=== PATIENT | male | born 1960 | race Caucasian/White ===

== ENCOUNTER 2016-12-10 22:25 | Inpatient (IN) | payer OTHER ==
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
[2016-12-10] MEDS ORDERED: METHADONE HCL 10 MG TABLET (FOR DETOX USE ONLY) PO ONE ×2 (23:00→23:25)
[2016-12-10 23:07] VITALS: BMI 25.6
[2016-12-10] MEDS ORDERED: diphenhydrAMINE HCL 50 MG CAPSULE PO PRN (23:25)
[2016-12-10] MEDS ORDERED: diazePAM 5 MG TABLET PO PRN (23:25)
[2016-12-10] MEDS ORDERED: NICOTINE POLACRILEX 2 MG GUM BUC PRN (23:25)
[2016-12-10] MEDS ORDERED: guaiFENesin/D-METHORPHAN HB 10 ML UNIT-DOSE CUPS PO PRN (23:25)
[2016-12-10] MEDS ORDERED: hydrOXYzine PAMOATE 25 MG CAPSULE (FP) PO PRN (23:25)
[2016-12-10] MEDS ORDERED: MENTHOL/PHENOL 1 EACH UD MM PRN (23:25)
[2016-12-10] MEDS ORDERED: LOPERAMIDE HCL 2 MG CAPSULE PO PRN (23:25)
[2016-12-10] MEDS ORDERED: MAG HYDROX/AL HYDROX/SIMETH 30 ML UNIT-DOSE CUP PO PRN (23:25)
[2016-12-10] MEDS ORDERED: ACETAMINOPHEN 325 MG TABLET (FP) PO PRN (23:25)
[2016-12-10] MEDS ORDERED: P-EPHED 60MG/TRIPROLIDI 2.5MG TABLET PO PRN (23:25)
[2016-12-10] MEDS ORDERED: diazePAM 5 MG TABLET PO ONE (23:25)
[2016-12-10] MEDS ORDERED: MAGNESIUM CITRATE 300 ML BOTTLE PO PRN (23:25)
[2016-12-10] MEDS ORDERED: MAGNESIUM HYDROX 2400MG/30ML ORAL SUSPENSION 30 ML CUP PO PRN (23:25)
[2016-12-10] MEDS ORDERED: IBUPROFEN 400 MG TABLET (FP) PO PRN (23:25)
[2016-12-10] MEDS ORDERED: CYCLOBENZAPRINE HCL 10 MG TABLET (FP) PO PRN (23:28)
[2016-12-11] MEDS: diazePAM 5 MG TABLET PO SCH ×4 (00:46→21:24)
[2016-12-11 09:40] LABS: MCH 28.7 pg (25.7-33.7); MCHC 32.3 g/dl (32.0-35.9); MEAN CELL VOLUME 88.8 fl (80-96); MEAN PLT VOLUME 7.8 fl (7.5-11.1); PLATELET COUNT 346 K/MM3 (134-434); RDW 14.5 % (11.9-15.9); WHITE BLOOD COUNT 5.3 K/mm3 (4.0-10.0)
[2016-12-11] MEDS ORDERED: GABAPENTIN 300 MG CAPSULE (FP) PO SCH (10:00)
[2016-12-11] MEDS ORDERED: METHADONE HCL 10 MG TABLET (FOR DETOX USE ONLY) PO ONE ×2 (10:00→23:00)
[2016-12-11] MEDS ORDERED: METHADONE HCL 10 MG TABLET (FOR DETOX USE ONLY) PO SCH (10:00)
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
[2016-12-11] MEDS: PRENATAL VITAMINS W/ FOLIC ACID TABLET (FP) PO SCH (10:02)
[2016-12-11] MEDS: cloNIDine HCL 0.1 MG TABLET PO SCH ×2 (10:02→21:25)
[2016-12-11] MEDS: NICOTINE 21 MG/24 HOURS TOPICAL PATCH TD SCH (10:03)
[2016-12-11] MEDS: diazePAM 5 MG TABLET PO PRN ×2 (10:04→19:28)
[2016-12-11 10:06] LABS: ALK PHOS 64 U/L (45-117); ANION GAP 7 (8-16); BILIRUBIN,TOTAL 0.4 mg/dL (0.2-1.0); CALCIUM 8.7 mg/dL (8.5-10.1); CO2 31 mmol/L (21-32); GLUCOSE,RANDOM 110 mg/dL (74-106); SGOT/AST 26 U/L (15-37); SGPT/ALT 33 U/L (12-78); TOT PROT 6.6 g/dl (6.4-8.2)
[2016-12-11] MEDS ORDERED: ONDANSETRON *ODT* 4 MG TABLET SL PRN (10:19)
[2016-12-11 11:47] LABS: HIV 1 & 2 AB NEGATIVE; HIV 1 AGp24 NEGATIVE
[2016-12-11] MEDS: GABAPENTIN 300 MG CAPSULE (FP) PO SCH ×2 (13:11→21:24)
--- NOTE | 2016-12-11 17:16 | PN ---
S CIWA - CIWA Score Nausea/Vomitin Muscle Tremors: 4-Moderate,w/Arms Extend Anxiety: 3 Agitation: 3 Paroxysmal Sweats: 3 Orientation: 0-Oriented Tacttile Disturbances: 2-Mild Itch/Numbness/Burn Auditory Disturbances: 0-None Visual Disturbances: 0-None Headache: 3-Moderate CIWA-Ar Total Score: 21 BHS COWS - Scale Resting Pulse: 1= [place] 81-100 Sweatin= Chills/Flushing Restless Observation: 1= Difficult to Sit Still Pupil Size: 0= Normal to Room Light Bone or Joint Aches: 2= Severe Diffuse Aches Runny Nose/ Eye Tearin= Runny Nose/Eyes GI Upset > 30mins: 2= Nausea/Diarrhea Tremor Observation of Outstretched Hands: 2= Slight Tremor Visible Yawning Observation: 1= 1-2x During Session Anxiety or Irritability: 2=Irritable/Anxious Goose Flesh Skin: 0=Smooth Skin COWS Score: 14 S Progress Note (SOAP) Subjective: Nausea, Stomach Cramping, H/A, Fatigue, Tremors, Sweating, Body Aches. Objective: PT. A & O X 3. NO ACUTE DISTRESS. 12/11/16 17:14 Vital Signs Temperature 97.9 F 12/11/16 13:22 Pulse Rate 78 12/11/16 13:22 Respiratory Rate 18 12/11/16 13:22 Blood Pressure 101/75 12/11/16 13:22 O2 Sat by Pulse Oximetry (%) Laboratory Tests 12/11/16 12/11/16 12/11/16 05:30 05:30 05:30 WBC 5.3 RBC 5.15 Hgb 14.8 Hct 45.8 MCV 88.8 MCH 28.7 MCHC 32.3 RDW 14.5 Plt Count 346 MPV 7.8 Sodium 141 Potassium 4.4 Chloride 103 Carbon Dioxide 31 Anion Gap 7 L BUN 15 Creatinine 1.0 Creat Clearance w eGFR > 60 Random Glucose 110 H Calcium 8.7 Total Bilirubin 0.4 AST 26 ALT 33 Alkaline Phosphatase 64 Total Protein 6.6 Albumin 3.0 L RPR Titer Nonreactive HIV 1&2 Antibody Screen HIV P24 Antigen 12/11/16 05:30 WBC RBC Hgb Hct MCV MCH MCHC RDW Plt Count MPV Sodium Potassium Chloride Carbon Dioxide Anion Gap BUN Creatinine Creat Clearance w eGFR Random Glucose Calcium Total Bilirubin AST ALT Alkaline Phosphatase Total Protein Albumin RPR Titer HIV 1&2 Antibody Screen Negative HIV P24 Antigen Negative LABS NOTED. UA RESULTS PENDING. 12/11/16 17:15 Assessment: 12/11/16 17:15 WITHDRAWAL SYMPTOMS. Plan: CONTINUE DETOX.
[2016-12-11] MEDS: THIAMINE HCL 100 MG TABLET (FP) PO SCH (21:24)
[2016-12-11] MEDS: OLANZapine 10 MG TABLET PO SCH (21:24)
--- NOTE | 2016-12-11 22:16 | EKG ---
Test Reason : Blood Pressure : / mmHG Vent. Rate : 074 BPM Atrial Rate : 074 BPM P-R Int : 142 ms QRS Dur : 092 ms QT Int : 370 ms P-R-T Axes : 036 070 061 degrees QTc Int : 410 ms NORMAL SINUS RHYTHM NORMAL ECG NO PREVIOUS ECGS AVAILABLE Confirmed by CAROLINA CARTER MD ([id number]) on 12/11/2016 10:16:08 PM Referred By: Confirmed By:CAROLINA CARTER MD
[2016-12-11] MEDS: ZOLPIDEM TARTRATE 10 MG TABLET (PARK CARE ONLY) PO PRN (22:17)
[2016-12-12] MEDS: GABAPENTIN 300 MG CAPSULE (FP) PO SCH ×3 (05:50→22:09)
[2016-12-12] MEDS: diazePAM 5 MG TABLET PO PRN ×3 (05:50→18:18)
[2016-12-12] MEDS ORDERED: METHADONE HCL 5 MG TABLET (FOR DETOX USE ONLY) PO SCH (10:00)
[2016-12-12] MEDS ORDERED: METHADONE HCL 10 MG TABLET (FOR DETOX USE ONLY) PO ONE (10:00)
[2016-12-12] MEDS: cloNIDine HCL 0.1 MG TABLET PO SCH ×2 (10:25→22:08)
[2016-12-12] MEDS: NICOTINE 21 MG/24 HOURS TOPICAL PATCH TD SCH (10:26)
[2016-12-12] MEDS: PRENATAL VITAMINS W/ FOLIC ACID TABLET (FP) PO SCH (10:26)
[2016-12-12] MEDS: diazePAM 5 MG TABLET PO SCH ×2 (10:26→22:08)
--- NOTE | 2016-12-12 11:16 | PN ---
S CIWA - CIWA Score Nausea/Vomitin Muscle Tremors: None Anxiety: 5 Agitation: 3 Paroxysmal Sweats: 3 Orientation: 0-Oriented Tacttile Disturbances: 3-Moderate Itch/Numb/Burn Auditory Disturbances: 0-None Visual Disturbances: 0-None Headache: 2-Mild CIWA-Ar Total Score: 21 BHS COWS - Scale Resting Pulse: 1= [place] 81-100 Sweatin= Chills/Flushing Restless Observation: 1= Difficult to Sit Still Pupil Size: 0= Normal to Room Light Bone or Joint Aches: 2= Severe Diffuse Aches Runny Nose/ Eye Tearin= Nasal Congestion GI Upset > 30mins: 3= Vomiting/Diarrhea Tremor Observation of Outstretched Hands: 0= None Yawning Observation: 0= None Anxiety or Irritability: 2=Irritable/Anxious Goose Flesh Skin: 3=Piloerection COWS Score: 14 S Progress Note (SOAP) Subjective: Interrupted sleep, Vomiting, Stomach Cramping, H/A, Body Aches, Sweating. Objective: PT. A & O X 3, OBSERVED AMBULATING ON UNIT. NO ACUTE DISTRESS. 12/12/16 11:14 Vital Signs Temperature 95.5 F L 12/12/16 09:10 Pulse Rate 83 12/12/16 09:10 Respiratory Rate 18 12/12/16 09:10 Blood Pressure 121/86 12/12/16 09:10 O2 Sat by Pulse Oximetry (%) Laboratory Tests 12/11/16 12/11/16 12/11/16 05:30 05:30 05:30 WBC 5.3 RBC 5.15 Hgb 14.8 Hct 45.8 MCV 88.8 MCH 28.7 MCHC 32.3 RDW 14.5 Plt Count 346 MPV 7.8 Sodium 141 Potassium 4.4 Chloride 103 Carbon Dioxide 31 Anion Gap 7 L BUN 15 Creatinine 1.0 Creat Clearance w eGFR > 60 Random Glucose 110 H Calcium 8.7 Total Bilirubin 0.4 AST 26 ALT 33 Alkaline Phosphatase 64 Total Protein 6.6 Albumin 3.0 L RPR Titer Nonreactive HIV 1&2 Antibody Screen HIV P24 Antigen 12/11/16 05:30 WBC RBC Hgb Hct MCV MCH MCHC RDW Plt Count MPV Sodium Potassium Chloride Carbon Dioxide Anion Gap BUN Creatinine Creat Clearance w eGFR Random Glucose Calcium Total Bilirubin AST ALT Alkaline Phosphatase Total Protein Albumin RPR Titer HIV 1&2 Antibody Screen Negative HIV P24 Antigen Negative LABS NOTED. UA RESULTS PENDING. 12/12/16 11:15 Assessment: 12/12/16 11:15 WITHDRAWAL SYMPTOMS. Plan: CONTINUE DETOX.
[2016-12-12 14:04] LABS: URINE APPEARANCE SLCLOUDY; URINE BILIRUBIN NEGATIVE (NEGATIVE); URINE BLOOD NEGATIVE (NEGATIVE); URINE COLOR YELLOW; URINE GLUCOSE (UA) NEGATIVE (NEGATIVE); URINE KETONE NEGATIVE (NEGATIVE); URINE LEUK ESTERASE NEGATIVE (NEGATIVE); URINE NITRITE NEGATIVE (NEGATIVE); URINE PROTEIN NEGATIVE (NEGATIVE); URINE UROBILINOGEN NEGATIVE mg/dL (0.2-1.0)
[2016-12-12 17:39] VITALS: BP 98/57; PULSE 74; TEMP 97.5
[2016-12-12] MEDS: ZOLPIDEM TARTRATE 10 MG TABLET (PARK CARE ONLY) PO PRN (22:08)
[2016-12-12] MEDS: OLANZapine 10 MG TABLET PO SCH (22:09)
[2016-12-12] MEDS: THIAMINE HCL 100 MG TABLET (FP) PO SCH (22:09)
--- NOTE | 2016-12-12 22:58 | DS ---
[facility] Detox Discharge Summary Admission Date: 12/10/16 Discharge Date: 12/12/16 - History Present History: Alcohol Dependence, Opioid Dependence Pertinent Past History: Hepatitis C - Physical Exam Results Vital Signs: Vital Signs Temperature 97.5 F L 12/12/16 17:38 Pulse Rate 74 12/12/16 17:38 Respiratory Rate 18 12/12/16 17:38 Blood Pressure 98/57 12/12/16 17:38 O2 Sat by Pulse Oximetry (%) - Medication Discharge Medications: Ambulatory Orders Clonazepam [Klonopin -] 2 mg PO BID 12/11/16 Gabapentin [Neurontin -] 300 mg PO TID #90 cap 12/11/16 Gabapentin [Neurontin] 300 mg PO TID 12/11/16 Olanzapine [ZyPREXA -] 10 mg PO HS #30 tablet 12/11/16 Olanzapine [Zyprexa] 20 mg PO HS 12/11/16 - Diagnosis (1) Alcohol dependence with uncomplicated withdrawal Current Visit: Yes Status: Chronic (2) Opioid dependence with withdrawal Current Visit: Yes Status: Chronic - AMA Did Patient Leave Against Medical Advice: Yes (Pt. left the floor before [employer] C[employer]ER SERVICE REPRESENTATIVE could assess him on the unit. )
--- NOTE | 2016-12-12 23:02 | PN ---
[facility] Progress Note Note: Pt. was escorted off the floor by security. He left AMA and refused to wait to see the FUTURES TRADER.
[2016-12-13] MEDS ORDERED: METHADONE HCL 5 MG TABLET (FOR DETOX USE ONLY) PO ONE (10:00)
[2016-12-14] MEDS ORDERED: METHADONE HCL 5 MG TABLET (FOR DETOX USE ONLY) PO ONE (10:00)
[2016-12-14] MEDS ORDERED: diazePAM 5 MG TABLET PO SCH (10:00)
[2016-12-14] MEDS ORDERED: METHADONE HCL 10 MG TABLET (FOR DETOX USE ONLY) PO SCH (10:00)
[2016-12-15] MEDS ORDERED: METHADONE HCL 5 MG TABLET (FOR DETOX USE ONLY) PO SCH (06:00)
[2016-12-15] MEDS ORDERED: METHADONE HCL 10 MG TABLET (FOR DETOX USE ONLY) PO ONE (10:00)
[2016-12-16] MEDS ORDERED: METHADONE HCL 5 MG TABLET (FOR DETOX USE ONLY) PO ONE (06:00)
== END 2016-12-12 22:46 | disposition left against medical advice (07) | DRG 770 ==
LOC: YASAS 22:25 → Y3N 23:08
PROVIDERS: ADMIT Internal Medicine Addiction Medicine; ATTEND Internal Medicine Addiction Medicine
PROC: HZ2ZZZZ Detoxification Services for Substance Abuse Treatment (ICD-10-PCS; principal; 2016-12-10)
DX: F11.23 Opioid dependence with withdrawal (principal); F10.230 Alcohol dependence with withdrawal, uncomplicated; F14.20 Cocaine dependence, uncomplicated; F17.210 Nicotine dependence, cigarettes, uncomplicated; F43.10 Post-traumatic stress disorder, unspecified; B18.2 Chronic viral hepatitis C; Z87.898 Personal history of other specified conditions; Z98.890 Other specified postprocedural states; Z91.14 Patient's other noncompliance with medication regimen; Z88.0 Allergy status to penicillin; Z86.69 Personal history of other diseases of the nervous system and sense organs; Z91.5 Personal history of self-harm; Z59.0 Homelessness
CPT/HCPCS: 36415; 80053; 81003; 85027; 86593; 87389; 93005; 93010

== ENCOUNTER 2017-01-16 11:11 | Inpatient (IN) | payer OTHER ==
[2017-01-16 12:23] VITALS: BMI 25.0
--- NOTE | 2017-01-16 13:50 | HP ---
COWS - Scale Resting Pulse: 0= [place] 80 or Below Sweatin=Flushed/Facial Moisture Restless Observation: 1= Difficult to Sit Still Pupil Size: 0= Normal to Room Light Bone or Joint Aches: 2= Severe Diffuse Aches Runny Nose/ Eye Tearin= Runny Nose/Eyes GI Upset > 30mins: 0= None Tremor Observation: 2= Slight Tremor Visible Yawning Observation: 2= >3x During Session Anxiety or Irritability: 2=Irritable/Anxious Goose Flesh Skin: 3=Piloerection COWS Score: 16 CIWA Score - CIWA Score Nausea/Vomitin-Mild Nausea/No Vomiting Muscle Tremors: 4-Moderate,w/Arms Extend Anxiety: 3 Agitation: 4-Moderately Restless Paroxysmal Sweats: 3 Orientation: 0-Oriented Tacttile Disturbances: 0-None Auditory Disturbances: 0-None Visual Disturbances: 0-None Headache: 1-Very Mild CIWA-Ar Total Score: 16 Admission ROS BHS - HPI Chief Complaint: I am here because I want to get better. Allergies/Adverse Reactions: Allergies Allergy/AdvReac Type Severity Reaction Status Date / Time Penicillins Allergy Verified 01/16/17 13:26 History of Present Illness: pt is a 56yr old male with a history of alcohol and heroin dependence seeking detox for treatment. Pt has been given this opportunity for his detox. pt is aware that his last visit with us he was disrespecting the staff cursing and threatening and was not ready for the detox at the time and following unit rules. this visit he is ready and will complete. Exam Limitations: No Limitations - Ebola screening Have you traveled outside of the country in the last 21 days: No Have you had contact with anyone from an Ebola affected area: No Have you been sick,other than usual withdrawal symptoms: No Do you have a fever: No - Review of Systems Constitutional: Chills, Loss of Appetite, Night Sweats, Changes in sleep EENT: reports: Tearing, Nose Congestion Respiratory: reports: No Symptoms reported Cardiac: reports: No Symptoms Reported GI: reports: Constipated, Poor Appetite, Poor Fluid Intake, Indigestion : reports: No Symptoms Reported Musculoskeletal: reports: Back Pain, Joint Pain, Neck Pain Integumentary: reports: Flushing, Sweating Neuro: reports: Headache, Seizure (last seizure 4 days ago d/t alcohol or drug use), Tingling, Tremors Endocrine: reports: Excessive Sweating, Flushing Hematology: reports: No Symptoms Reported Psychiatric: reports: No Sypmtoms Reported, Judgement Intact, Mood/Affect Appropiate, Orientated x3, Agitated, Anxious Other Systems: Reviewed and Negative Patient History - Patient Medical History Hx Anemia: No Hx Asthma: No Hx Chronic Obstructive Pulmonary Disease (COPD): No Hx Cancer: No Hx Cardiac Disorders: No Hx Congestive Heart Failure: No Hx Hypertension: No Hx Hypercholesterolemia: No Hx Pacemaker: No HX Cerebrovascular Accident: No Hx Seizures: Yes (LAST 12/08/16) Hx Dementia: No Hx Diabetes: No Hx Gastrointestinal Disorders: No Hx Liver Disease: No Hx Genitourinary Disorders: No Hx Sexually Transmitted Disorders: No Hx Renal Disease (ESRD): No Hx Thyroid Disease: No Hx Human Immunodeficiency Virus (HIV): No (LAST 04/25 NEGATIVE) Hx Hepatitis C: Yes (received tx but was not successful) Hx Depression: No Hx Suicide Attempt: Yes (HANG HIMSELF) Hx Bipolar Disorder: No Hx Schizophrenia: Yes (NON COMPLIANCE) - Patient Surgical History Past Surgical History: Yes Hx Neurologic Surgery: Yes (SURGERY FOR FX OF C1 AND C2) Hx Orthopedic Surgery: Yes (FX CALCANEUS BOTH IN 1992) - PPD History Previous Implant?: Yes Documented Results: Negative w/o proof PPD to be Administered?: Yes - Reproductive History Patient is a Female of Child Bearing Age (11 -55 yrs old): No - Smoking Cessation Smoking history: Current every day smoker Have you smoked in the past 12 months: Yes Aproximately how many cigarettes per day: 20 Cigars Per Day: 0 Hx Chewing Tobacco Use: No Initiated information on smoking cessation: Yes 'Breaking Loose' booklet given: 01/16/17 - Substance & Tx. History Hx Alcohol Use: Yes Hx Substance Use: Yes Substance Use Type: Alcohol, Cocaine, Heroin Hx Substance Use Treatment: Yes (last detox 12/2016 but did not complete) - Substances Abused Alcohol-beer Route: Oral Frequency: Daily Amount used: 2-3 6 pks. Age of first use: 16 Date of Last Use: 01/15/17 Heroin Route: Injection Frequency: Daily Amount used: 18 bags Age of first use: 16 Date of Last Use: 01/16/17 Cocaine Route: Injection Frequency: 3-6 times per week Amount used: 40 Age of first use: 20 Date of Last Use: 01/13/17 Family Disease History - Family Disease History Family Disease History: Other: Father (ALCOHOL,DSA ) Admission Physical Exam [facility] - Vital Signs Vital Signs: Vital Signs - 24 hr 01/16/17 12:20 Temperature 98.7 F Pulse Rate 74 Respiratory 18 Rate Blood Pressure 127/71 - Physical General Appearance: Yes: Appropriately Dressed, Moderate Distress, Thin, Tremorous, Irritable, Sweating, Anxious HEENTM: Yes: Normocephalic, Normal Voice, Nasal Congestion, Rhinorrhea Respiratory: Yes: Lungs Clear, Normal Breath Sounds, No Respiratory Distress Neck: Yes: No masses,lesions,Nodules Breast: Yes: Within Normal Limits Cardiology: Yes: Regular Rhythm, Regular Rate, S1, S2 Abdominal: Yes: Normal Bowel Sounds, Non Tender, Soft Genitourinary: Yes: Within Normal Limits Back: Yes: Normal Inspection Musculoskeletal: Yes: full range of Motion, Back pain Extremities: Yes: Normal Capillary Refill, Normal Inspection, Tremors Neurological: Yes: Fully Oriented, Alert, Normal Response Integumentary: Yes: Normal Color, Diaphoresis, Track Mcghee Lymphatic: Yes: Within Normal Limits - Diagnostic (1) Alcohol dependence with uncomplicated withdrawal Current Visit: Yes Status: Chronic (2) Hepatitis C Current Visit: Yes Status: Chronic Qualifiers: Viral hepatitis chronicity: chronic Hepatic coma status: without hepatic coma Qualified Code(s): B18.2 - Chronic viral hepatitis C; B18.2 - Chronic viral hepatitis C; B18.2 - Chronic viral hepatitis C; B18.2 - Chronic viral hepatitis C (3) Nicotine dependence Current Visit: Yes Status: Chronic Qualifiers: Nicotine product type: cigarettes Substance use status: uncomplicated Qualified Code(s): F17.210 - Nicotine dependence, cigarettes, uncomplicated; F17.210 - Nicotine dependence, cigarettes, uncomplicated (4) Opioid dependence with withdrawal Current Visit: Yes Status: Chronic Cleared for Admission [facility] - Detox or Rehab [facility] Level of Care: Medically Managed Detox Regimen/Protocol: Methadone/Valium [facility] Breath Alcohol Content Breath Alcohol Content: 0 Urine Drug Screen - Results Drug Screen Negative: No Urine Drug Screen Results: OPI-Opiates, BZO-Benzodiazepines, MTD-Methadone
[2017-01-16] MEDS ORDERED: ACETAMINOPHEN 325 MG TABLET (FP) PO PRN (13:58)
[2017-01-16] MEDS ORDERED: LOPERAMIDE HCL 2 MG CAPSULE PO PRN (13:58)
[2017-01-16] MEDS ORDERED: MAGNESIUM CITRATE 300 ML BOTTLE PO PRN (13:58)
[2017-01-16] MEDS ORDERED: hydrOXYzine PAMOATE 50 MG CAPSULE (FP) PO PRN (13:58)
[2017-01-16] MEDS ORDERED: guaiFENesin/D-METHORPHAN HB 10 ML UNIT-DOSE CUPS PO PRN (13:58)
[2017-01-16] MEDS ORDERED: diphenhydrAMINE HCL 50 MG CAPSULE PO PRN (13:58)
[2017-01-16] MEDS ORDERED: MAGNESIUM HYDROX 2400MG/30ML ORAL SUSPENSION 30 ML CUP PO PRN (13:58)
[2017-01-16] MEDS ORDERED: MENTHOL/PHENOL 1 EACH UD MM PRN (13:58)
[2017-01-16] MEDS ORDERED: P-EPHED 60MG/TRIPROLIDI 2.5MG TABLET PO PRN (13:58)
[2017-01-16] MEDS ORDERED: NICOTINE POLACRILEX 4 MG GUM BUC PRN (13:58)
[2017-01-16] MEDS ORDERED: METHADONE HCL 10 MG TABLET (FOR DETOX USE ONLY) PO ONE ×2 (15:43→23:00)
[2017-01-16] MEDS ORDERED: diazePAM 5 MG TABLET PO ONE (15:43)
[2017-01-16] MEDS: THIAMINE HCL 100 MG TABLET (FP) PO SCH (22:27)
[2017-01-16] MEDS: diazePAM 5 MG TABLET PO SCH (22:28)
[2017-01-16] MEDS: IBUPROFEN 400 MG TABLET (FP) PO PRN (22:29)
[2017-01-16 22:59] LABS: URINE APPEARANCE CLEAR; URINE BILIRUBIN NEGATIVE (NEGATIVE); URINE BLOOD NEGATIVE (NEGATIVE); URINE COLOR YELLOW; URINE GLUCOSE (UA) NEGATIVE (NEGATIVE); URINE KETONE NEGATIVE (NEGATIVE); URINE NITRITE NEGATIVE (NEGATIVE); URINE PROTEIN NEGATIVE (NEGATIVE); URINE UROBILINOGEN NEGATIVE mg/dL (0.2-1.0)
[2017-01-17] MEDS: diazePAM 5 MG TABLET PO SCH ×3 (05:24→22:55)
[2017-01-17 08:36] LABS: HIV 1 & 2 AB NEGATIVE; HIV 1 AGp24 NEGATIVE
[2017-01-17] MEDS: diazePAM 5 MG TABLET PO PRN ×2 (08:59→17:23)
[2017-01-17] MEDS ORDERED: METHADONE HCL 10 MG TABLET (FOR DETOX USE ONLY) PO SCH (10:00)
[2017-01-17] MEDS: PRENATAL VITAMINS W/ FOLIC ACID TABLET (FP) PO SCH (10:19)
[2017-01-17] MEDS: NICOTINE 21 MG/24 HOURS TOPICAL PATCH TD SCH (10:20)
[2017-01-17] MEDS: IBUPROFEN 400 MG TABLET (FP) PO PRN ×3 (10:21→22:57)
[2017-01-17 10:29] LABS: MCH 28.6 pg (25.7-33.7); MCHC 32.6 g/dl (32.0-35.9); MEAN CELL VOLUME 87.5 fl (80-96); PLATELET COUNT 342 K/MM3 (134-434); WHITE BLOOD COUNT 6.7 K/mm3 (4.0-10.0)
[2017-01-17 10:42] LABS: URINE LEUK ESTERASE Negative (NEGATIVE)
[2017-01-17 10:48] LABS: ALBUMIN 2.9 g/dl (3.4-5.0); ALK PHOS 62 U/L (45-117); ANION GAP 6 (8-16); BILIRUBIN,TOTAL 0.5 mg/dL (0.2-1.0); CALCIUM 8.5 mg/dL (8.5-10.1); CO2 28 mmol/L (21-32); CREATININE 0.8 mg/dL (0.7-1.3); GLUCOSE,RANDOM 94 mg/dL (74-106); SGOT/AST 21 U/L (15-37); SGPT/ALT 37 U/L (12-78); TOT PROT 6.5 g/dl (6.4-8.2)
--- NOTE | 2017-01-17 12:08 | PN ---
[facility] CIWA - CIWA Score Nausea/Vomitin Muscle Tremors: 3 Anxiety: 3 Agitation: 3 Paroxysmal Sweats: 1-Minimal Palms Moist Orientation: 0-Oriented Tacttile Disturbances: 1-Very Mild Itch/Numbness Auditory Disturbances: 1-Very Mild Visual Disturbances: 0-None Headache: 2-Mild CIWA-Ar Total Score: 17 [facility] COWS - Scale Resting Pulse: 0= [place] 80 or Below Sweatin= Chills/Flushing Restless Observation: 3= Extraneous Movement Pupil Size: 1= Pupils >than Normal Bone or Joint Aches: 2= Severe Diffuse Aches Runny Nose/ Eye Tearin= Runny Nose/Eyes GI Upset > 30mins: 3= Vomiting/Diarrhea Tremor Observation of Outstretched Hands: 2= Slight Tremor Visible Yawning Observation: 1= 1-2x During Session Anxiety or Irritability: 2=Irritable/Anxious Goose Flesh Skin: 0=Smooth Skin COWS Score: 17 [facility] Progress Note (SOAP) Subjective: alert,irritable,anxious,interrupted sleep,pain i the body and back,tremor Objective: 01/17/17 12:06 Vital Signs Temperature 97.3 F L 01/17/17 10:55 Pulse Rate 70 01/17/17 10:55 Respiratory Rate 18 01/17/17 10:55 Blood Pressure 109/85 01/17/17 10:55 O2 Sat by Pulse Oximetry (%) ekg nsr,normal ecg Laboratory Last Values WBC 6.7 K/mm3 (4.0-10.0) 01/17/17 07:00 RBC 5.50 M/mm3 (4.00-5.60) 01/17/17 07:00 Hgb 15.7 GM/dL (11.7-16.9) 01/17/17 07:00 Hct 48.2 % (35.4-49) 01/17/17 07:00 MCV 87.5 fl (80-96) 01/17/17 07:00 MCH 28.6 pg (25.7-33.7) 01/17/17 07:00 MCHC 32.6 g/dl (32.0-35.9) 01/17/17 07:00 RDW 14.0 % (11.9-15.9) 01/17/17 07:00 Plt Count 342 K/MM3 (134-434) 01/17/17 07:00 MPV 8.0 fl (7.5-11.1) 01/17/17 07:00 Sodium 140 mmol/L (136-145) 01/17/17 07:00 Potassium 4.6 mmol/L (3.5-5.1) 01/17/17 07:00 Chloride 106 mmol/L (98-107) 01/17/17 07:00 Carbon Dioxide 28 mmol/L (21-32) 01/17/17 07:00 Anion Gap 6 (8-16) L 01/17/17 07:00 BUN 12 mg/dL (7-18) 01/17/17 07:00 Creatinine 0.8 mg/dL (0.7-1.3) 01/17/17 07:00 Creat Clearance w eGFR > 60 (>60) 01/17/17 07:00 Random Glucose 94 mg/dL (74-106) 01/17/17 07:00 Calcium 8.5 mg/dL (8.5-10.1) 01/17/17 07:00 Total Bilirubin 0.5 mg/dL (0.2-1.0) D 01/17/17 07:00 AST 21 U/L (15-37) 01/17/17 07:00 ALT 37 U/L (12-78) 01/17/17 07:00 Alkaline Phosphatase 62 U/L (45-117) 01/17/17 07:00 Total Protein 6.5 g/dl (6.4-8.2) 01/17/17 07:00 Albumin 2.9 g/dl (3.4-5.0) L 01/17/17 07:00 Urine Color Yellow 01/16/17 19:00 Urine Appearance Clear 01/16/17 19:00 Urine pH 6.0 (5.0-8.0) 01/16/17 19:00 Ur Specific [place] 1.020 (1.005-1.025) 01/16/17 19:00 Urine Protein Negative (NEGATIVE) 01/16/17 19:00 Urine Glucose (UA) Negative (NEGATIVE) 01/16/17 19:00 Urine Ketones Negative (NEGATIVE) 01/16/17 19:00 Urine Blood Negative (NEGATIVE) 01/16/17 19:00 Urine Nitrite Negative (NEGATIVE) 01/16/17 19:00 Urine Bilirubin Negative (NEGATIVE) 01/16/17 19:00 Urine Urobilinogen Negative mg/dL (0.2-1.0) 01/16/17 19:00 Ur Leukocyte Esterase Negative (NEGATIVE) 01/16/17 19:00 HIV 1&2 Antibody Screen Negative 01/16/17 13:30 HIV P24 Antigen Negative 01/16/17 13:30 Assessment: 01/17/17 12:08 withdrawal symptom Plan: continue detox
[2017-01-17] MEDS ORDERED: cloNIDine HCL 0.1 MG TABLET PO ONE (12:35)
[2017-01-17] MEDS: CYCLOBENZAPRINE HCL 10 MG TABLET (FP) PO PRN ×2 (13:08→22:57)
--- NOTE | 2017-01-17 13:16 | EKG ---
Test Reason : Blood Pressure : / mmHG Vent. Rate : 066 BPM Atrial Rate : 066 BPM P-R Int : 142 ms QRS Dur : 092 ms QT Int : 372 ms P-R-T Axes : 037 072 059 degrees QTc Int : 389 ms NORMAL SINUS RHYTHM NORMAL ECG WHEN COMPARED WITH ECG OF 10-DEC-2016 22:44, NO SIGNIFICANT CHANGE WAS FOUND Confirmed by MARY HARDEN MD ([id number]) on 01/17/2017 1:16:20 PM Referred By: Boyd Morales Confirmed By:MARY HARDEN MD
--- NOTE | 2017-01-17 14:47 | CONSULT ---
[facility] Psychiatric Consult - Data Date of interview: 01/17/17 Admission source: [facility] Identifying data: Patient declines psychiatric evaluation.Staff is made aware.
[2017-01-17] MEDS: THIAMINE HCL 100 MG TABLET (FP) PO SCH (22:55)
[2017-01-17] MEDS: cloNIDine HCL 0.1 MG TABLET PO SCH (22:58)
[2017-01-18] MEDS: diazePAM 5 MG TABLET PO PRN ×3 (07:08→18:35)
[2017-01-18] MEDS: IBUPROFEN 400 MG TABLET (FP) PO PRN ×2 (07:09→14:49)
[2017-01-18] MEDS: PRENATAL VITAMINS W/ FOLIC ACID TABLET (FP) PO SCH (10:22)
[2017-01-18] MEDS: cloNIDine HCL 0.1 MG TABLET PO SCH ×2 (10:22→22:50)
[2017-01-18] MEDS: CYCLOBENZAPRINE HCL 10 MG TABLET (FP) PO PRN ×2 (10:22→18:35)
[2017-01-18] MEDS: diazePAM 5 MG TABLET PO SCH ×2 (10:22→22:49)
[2017-01-18] MEDS: METHADONE HCL 5 MG TABLET (FOR DETOX USE ONLY) PO SCH (10:22)
[2017-01-18] MEDS: NICOTINE 21 MG/24 HOURS TOPICAL PATCH TD SCH (10:23)
--- NOTE | 2017-01-18 11:14 | PN ---
[facility] CIWA - CIWA Score Nausea/Vomitin Muscle Tremors: 3 Anxiety: 3 Agitation: 2 Paroxysmal Sweats: 1-Minimal Palms Moist Orientation: 0-Oriented Tacttile Disturbances: 1-Very Mild Itch/Numbness Auditory Disturbances: 1-Very Mild Visual Disturbances: 0-None Headache: 2-Mild CIWA-Ar Total Score: 16 [facility] COWS - Scale Resting Pulse: 1= [place] 81-100 Sweatin= Chills/Flushing Restless Observation: 3= Extraneous Movement Pupil Size: 1= Pupils >than Normal Bone or Joint Aches: 2= Severe Diffuse Aches Runny Nose/ Eye Tearin= Runny Nose/Eyes GI Upset > 30mins: 2= Nausea/Diarrhea Tremor Observation of Outstretched Hands: 2= Slight Tremor Visible Yawning Observation: 1= 1-2x During Session Anxiety or Irritability: 2=Irritable/Anxious Goose Flesh Skin: 0=Smooth Skin COWS Score: 17 [facility] Progress Note (SOAP) Subjective: alert,irritable,,anxious,interrupted sleep,tremor,pain in the body and back Objective: 01/18/17 11:11 Vital Signs Temperature 98.1 F 01/18/17 11:00 Pulse Rate 85 01/18/17 11:00 Respiratory Rate 20 01/18/17 11:00 Blood Pressure 111/67 01/18/17 11:00 O2 Sat by Pulse Oximetry (%) Assessment: 01/18/17 11:13 01/18/17 11:14 withdrawal symptom Plan: continue detox
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
[2017-01-18] MEDS: ZOLPIDEM TARTRATE 10 MG TABLET (PARK CARE ONLY) PO PRN (22:49)
[2017-01-18] MEDS: OLANZapine 10 MG TABLET PO SCH (22:49)
[2017-01-18] MEDS: THIAMINE HCL 100 MG TABLET (FP) PO SCH (22:49)
[2017-01-19] MEDS: diazePAM 5 MG TABLET PO PRN ×2 (05:39→13:42)
[2017-01-19] MEDS: CYCLOBENZAPRINE HCL 10 MG TABLET (FP) PO PRN ×2 (07:03→22:42)
[2017-01-19] MEDS: IBUPROFEN 400 MG TABLET (FP) PO PRN ×2 (07:04→15:05)
[2017-01-19] MEDS: cloNIDine HCL 0.1 MG TABLET PO SCH ×2 (10:43→22:42)
[2017-01-19] MEDS: diazePAM 5 MG TABLET PO SCH ×2 (10:43→22:42)
[2017-01-19] MEDS: METHADONE HCL 5 MG TABLET (FOR DETOX USE ONLY) PO SCH (10:43)
[2017-01-19] MEDS: PRENATAL VITAMINS W/ FOLIC ACID TABLET (FP) PO SCH (10:43)
[2017-01-19] MEDS: NICOTINE 21 MG/24 HOURS TOPICAL PATCH TD SCH (10:43)
--- NOTE | 2017-01-19 11:25 | PN ---
S Progress Note (SOAP) Subjective: alert,irritable,anxious,interrupted sleep,pain in the back,and neck,history of back surgery staed on neurontin 300 mgs po tid Objective: 01/19/17 11:23 Vital Signs Temperature 96.6 F L 01/19/17 09:31 Pulse Rate 87 01/19/17 09:31 Respiratory Rate 18 01/19/17 09:31 Blood Pressure 103/67 01/19/17 09:31 O2 Sat by Pulse Oximetry (%) Laboratory Last Values WBC 6.7 K/mm3 (4.0-10.0) 01/17/17 07:00 RBC 5.50 M/mm3 (4.00-5.60) 01/17/17 07:00 Hgb 15.7 GM/dL (11.7-16.9) 01/17/17 07:00 Hct 48.2 % (35.4-49) 01/17/17 07:00 MCV 87.5 fl (80-96) 01/17/17 07:00 MCH 28.6 pg (25.7-33.7) 01/17/17 07:00 MCHC 32.6 g/dl (32.0-35.9) 01/17/17 07:00 RDW 14.0 % (11.9-15.9) 01/17/17 07:00 Plt Count 342 K/MM3 (134-434) 01/17/17 07:00 MPV 8.0 fl (7.5-11.1) 01/17/17 07:00 Sodium 140 mmol/L (136-145) 01/17/17 07:00 Potassium 4.6 mmol/L (3.5-5.1) 01/17/17 07:00 Chloride 106 mmol/L (98-107) 01/17/17 07:00 Carbon Dioxide 28 mmol/L (21-32) 01/17/17 07:00 Anion Gap 6 (8-16) L 01/17/17 07:00 BUN 12 mg/dL (7-18) 01/17/17 07:00 Creatinine 0.8 mg/dL (0.7-1.3) 01/17/17 07:00 Creat Clearance w eGFR > 60 (>60) 01/17/17 07:00 Random Glucose 94 mg/dL (74-106) 01/17/17 07:00 Calcium 8.5 mg/dL (8.5-10.1) 01/17/17 07:00 Total Bilirubin 0.5 mg/dL (0.2-1.0) D 01/17/17 07:00 AST 21 U/L (15-37) 01/17/17 07:00 ALT 37 U/L (12-78) 01/17/17 07:00 Alkaline Phosphatase 62 U/L (45-117) 01/17/17 07:00 Total Protein 6.5 g/dl (6.4-8.2) 01/17/17 07:00 Albumin 2.9 g/dl (3.4-5.0) L 01/17/17 07:00 Urine Color Yellow 01/16/17 19:00 Urine Appearance Clear 01/16/17 19:00 Urine pH 6.0 (5.0-8.0) 01/16/17 19:00 Ur Specific [place] 1.020 (1.005-1.025) 01/16/17 19:00 Urine Protein Negative (NEGATIVE) 01/16/17 19:00 Urine Glucose (UA) Negative (NEGATIVE) 01/16/17 19:00 Urine Ketones Negative (NEGATIVE) 01/16/17 19:00 Urine Blood Negative (NEGATIVE) 01/16/17 19:00 Urine Nitrite Negative (NEGATIVE) 01/16/17 19:00 Urine Bilirubin Negative (NEGATIVE) 01/16/17 19:00 Urine Urobilinogen Negative mg/dL (0.2-1.0) 01/16/17 19:00 Ur Leukocyte Esterase Negative (NEGATIVE) 01/16/17 19:00 RPR Titer Nonreactive (NONREACTIVE) 01/17/17 07:00 HIV 1&2 Antibody Screen Negative 01/16/17 13:30 HIV P24 Antigen Negative 01/16/17 13:30 Assessment: 01/19/17 11:24 withdrawal symptom Plan: continue detox,neurontin 300 mgs po tid
[2017-01-19] MEDS ORDERED: FLU VACCINE QUAD 60 MCG/0.5 ML (MDV 17-18) IM ONE (12:00)
[2017-01-19] MEDS: GABAPENTIN 300 MG CAPSULE (FP) PO SCH ×2 (14:06→22:42)
[2017-01-19] MEDS: MAG HYDROX/AL HYDROX/SIMETH 30 ML UNIT-DOSE CUP PO PRN (17:40)
[2017-01-19] MEDS: ZOLPIDEM TARTRATE 10 MG TABLET (PARK CARE ONLY) PO PRN (22:42)
[2017-01-19] MEDS: OLANZapine 10 MG TABLET PO SCH (22:43)
[2017-01-19] MEDS: THIAMINE HCL 100 MG TABLET (FP) PO SCH (22:43)
[2017-01-20] MEDS: IBUPROFEN 400 MG TABLET (FP) PO PRN ×2 (05:26→20:05)
[2017-01-20] MEDS: GABAPENTIN 300 MG CAPSULE (FP) PO SCH ×3 (05:26→22:35)
[2017-01-20] MEDS: CYCLOBENZAPRINE HCL 10 MG TABLET (FP) PO PRN (05:26)
[2017-01-20] MEDS ORDERED: diazePAM 5 MG TABLET PO SCH (10:00)
[2017-01-20] MEDS ORDERED: METHADONE HCL 10 MG TABLET (FOR DETOX USE ONLY) PO SCH (10:00)
[2017-01-20] MEDS: PRENATAL VITAMINS W/ FOLIC ACID TABLET (FP) PO SCH (10:38)
[2017-01-20] MEDS: cloNIDine HCL 0.1 MG TABLET PO SCH ×2 (10:38→22:36)
[2017-01-20] MEDS: NICOTINE 21 MG/24 HOURS TOPICAL PATCH TD SCH (10:41)
[2017-01-20] MEDS: MAG HYDROX/AL HYDROX/SIMETH 30 ML UNIT-DOSE CUP PO PRN (11:02)
--- NOTE | 2017-01-20 12:54 | PN ---
[facility] Progress Note (SOAP) Subjective: alert,irritable,anxious,interrupted sleep,tremor,pain in the back Objective: 01/20/17 12:52 Vital Signs Temperature 98.1 F 01/20/17 10:29 Pulse Rate 100 H 01/20/17 10:29 Respiratory Rate 01/20/17 10:29 Blood Pressure 104/61 01/20/17 10:29 O2 Sat by Pulse Oximetry (%) Assessment: 01/20/17 12:53 withdrawal symptom Plan: continue detox,lidoderm patch,discharge in am
[2017-01-20] MEDS ORDERED: LIDOCAINE PATCH REMOVAL MC SCH (22:00)
[2017-01-20] MEDS: ZOLPIDEM TARTRATE 10 MG TABLET (PARK CARE ONLY) PO PRN (22:35)
[2017-01-20] MEDS: THIAMINE HCL 100 MG TABLET (FP) PO SCH (22:36)
[2017-01-20] MEDS: OLANZapine 10 MG TABLET PO SCH (22:36)
[2017-01-21] MEDS: METHADONE HCL 5 MG TABLET (FOR DETOX USE ONLY) PO SCH ×2 (05:52→05:54)
[2017-01-21] MEDS: GABAPENTIN 300 MG CAPSULE (FP) PO SCH (05:53)
[2017-01-21] MEDS: CYCLOBENZAPRINE HCL 10 MG TABLET (FP) PO PRN (05:53)
[2017-01-21] MEDS: IBUPROFEN 400 MG TABLET (FP) PO PRN (05:54)
--- NOTE | 2017-01-21 09:14 | DS ---
[facility] Detox Discharge Summary Admission Date: 01/16/17 Discharge Date: 01/21/17 - History Present History: Alcohol Dependence, Opioid Dependence Additional Comments: FOLLOW UP WITH AFTER CARE PROGRAM ARRANGEMENT Pertinent Past History: HEPATITIS C NICOTINE DEPENDENCE NEUROPATHY S/P BACK AND NECK SURGERY BIPOLAR DISORDER SUBSTANCE INDUCED MOOD DISORDER - Physical Exam Results Vital Signs: Vital Signs Temperature 98.4 F 01/21/17 06:48 Pulse Rate 84 01/21/17 06:48 Respiratory Rate 18 01/21/17 06:48 Blood Pressure 101/65 01/21/17 06:48 O2 Sat by Pulse Oximetry (%) Pertinent Admission Physical Exam Findings: WITHDRAWAL SYMPTOM - Treatment Hospital Course: Detox Protocol Followed, Detoxed Safely, Responded well, Discharged Condition Good Patient has Accepted a Rehab Referral to: [facility]CL[facility]ED - Medication Discharge Medications: Ambulatory Orders Clonazepam [Klonopin -] 2 mg PO BID 12/11/16 Gabapentin [Neurontin -] 300 mg PO TID #90 cap 12/11/16 Olanzapine [ZyPREXA -] 10 mg PO HS #30 tablet 12/11/16 Olanzapine [Zyprexa] 10 mg PO HS #30 tablet 01/18/17 - Diagnosis (1) Opioid dependence with withdrawal Current Visit: Yes Status: Acute (2) Alcohol dependence with uncomplicated withdrawal Current Visit: Yes Status: Acute (3) Bipolar disorder Current Visit: Yes Status: Chronic (4) Hepatitis C Current Visit: Yes Status: Chronic Qualifiers: Viral hepatitis chronicity: chronic Hepatic coma status: without hepatic coma Qualified Code(s): B18.2 - Chronic viral hepatitis C; B18.2 - Chronic viral hepatitis C; B18.2 - Chronic viral hepatitis C; B18.2 - Chronic viral hepatitis C (5) Weight loss Current Visit: No Status: Acute (6) History of lumbar surgery Current Visit: No Status: Chronic (7) Neuropathy Current Visit: Yes Status: Acute - AMA Did Patient Leave Against Medical Advice: No
[2017-01-21] MEDS ORDERED: LIDOCAINE 5% TOPICAL PATCH TP SCH (10:00)
[2017-01-21] MEDS: PRENATAL VITAMINS W/ FOLIC ACID TABLET (FP) PO SCH (10:05)
[2017-01-21] MEDS: cloNIDine HCL 0.1 MG TABLET PO SCH (10:05)
[2017-01-21 11:01] VITALS: BP 108/67; PULSE 67; TEMP 97.9
== END 2017-01-21 10:23 | disposition home or self-care (01) | DRG 773 ==
LOC: YASAS 11:11 → Y6N 15:39
PROVIDERS: ADMIT Internal Medicine; ATTEND Internal Medicine
PROC: HZ2ZZZZ Detoxification Services for Substance Abuse Treatment (ICD-10-PCS; principal; 2017-01-16)
DX: F11.23 Opioid dependence with withdrawal (principal); F13.230 Sedative, hypnotic or anxiolytic dependence with withdrawal, uncomplicated; F10.230 Alcohol dependence with withdrawal, uncomplicated; F14.20 Cocaine dependence, uncomplicated; F17.210 Nicotine dependence, cigarettes, uncomplicated; F31.9 Bipolar disorder, unspecified; F19.24 Other psychoactive substance dependence with psychoactive substance-induced mood disorder; B18.2 Chronic viral hepatitis C; G62.9 Polyneuropathy, unspecified; G47.00 Insomnia, unspecified; Z86.69 Personal history of other diseases of the nervous system and sense organs; Z88.0 Allergy status to penicillin; Z87.898 Personal history of other specified conditions; Z91.5 Personal history of self-harm; Z59.0 Homelessness
CPT/HCPCS: 36415; 80053; 81003; 85027; 86593; 87389; 90688; 93005; 93010; G0008